=== PATIENT | male | born 1980 | race Caucasian/White ===

== ENCOUNTER 2020-11-11 14:05 | Outpatient (REF) | payer OTHER, SELFPAY | END 2020-11-11 14:06 | disposition home or self-care (01) | LOC: HO.LAB 14:05 | PROVIDERS: Visit Provider Internal Medicine | DX: Z20.822 Contact with and (suspected) exposure to COVID-19 (principal) | CPT/HCPCS: 36415; C9803; U0003; U0005 ==

== ENCOUNTER 2021-01-04 16:18 | Emergency (ER) | payer OTHER, SELFPAY ==
[2021-01-04 16:24] VITALS: BP 139/91; PULSE 81; RESP 16; TEMP 36.5; O2SAT 98; BMI 31.7
--- NOTE | 2021-01-04 17:47 | ED.WOUNDLAC ---
HPI - Wound/Laceration General Chief Complaint: Wound/Laceration Stated Complaint: Finger lac Time Seen by Provider: 01/04/21 17:43 Source: patient Mode of arrival: ambulatory Limitations: no limitations History of Present Illness HPI narrative: 40-year-old male here with laceration to the left thumb after cutting it with a razor blade. The patient tells me he was cutting vinyl sivan when his hand slipped causing him to hit his left finger. Tetanus status out of date Related Data Previous Rx's Medication Instructions Recorded oxycodone 5 mg PO Q6H PRN #10 tab 01/04/21 Allergies Allergy/AdvReac Type Severity Reaction Status Date / Time No Known Allergies Allergy Verified 01/04/21 17:43 Review of Systems Review of Systems: Yes all other systems are reviewed and are negative Constitutional: Constitutional: Reports no additional constitutional complaints, Denies body ache(s), Denies chills, Denies fever(s), Denies headache(s) and Denies weakness Eyes: Eyes: Reports no additional eye complaints and Denies change in vision ENT: Reports system reviewed and no additional complaints, except as documented, Denies dizziness, Denies headache(s), Denies nasal congestion, Denies nasal discharge and Denies neck pain Cardiovascular: Cardiovascular: Reports no additional cardiovascular complaints, Denies chest pain, Denies leg edema and Denies dyspnea Respiratory: Respiratory: Reports no additional respiratory complaints, Denies cough and Denies dyspnea Gastrointestinal: Gastrointestinal: Reports no additional gastrointestinal complaints, Denies abdominal pain, Denies diarrhea, Denies nausea and Denies vomiting Genitourinary: Genitourinary: Denies urinary incontinence Musculoskeletal: Musculoskeletal: Reports no additional musculoskeletal complaints, Denies back pain, Denies arthralgias, Denies joint swelling, Denies neck pain, Denies numbness and Denies tingling Integumentary/Breasts: Skin/Breast: Reports system reviewed and no additional complaints, except as docu and Denies rash Comments: +laceration Neurologic: Reports system reviewed and no additional complaints, except as documented, Denies Abnormal speech present, Denies dizziness, Denies headache(s), Denies numbness, Denies tingling and Denies weakness PMF Past Medical History Attestation statement: The following information was validated with the patient. Source: old records reviewed and nursing notes reviewed Medical History No known health problems Social History Social History Advance Directives: No Advance Directives Information Provided: Yes Physical Exam Vital Signs: Vital Signs: Last Vital Signs Temp 97.7 F 01/04/21 16:24 Pulse 81 01/04/21 16:24 Resp 16 01/04/21 16:24 BP 139/91 H 01/04/21 16:24 Pulse Ox 98 01/04/21 16:24 Body Mass Index 31.7 Const: General: cooperative, healthy appearing, comfortable and no acute distress Orientation/consciousness: patient oriented x3 Limitations: no limitations HENMT: Head: Yes normal to inspection Ears: hearing grossly normal bilaterally General nose exam: Normal external nose present Face and sinus: Yes normal facial exam Mouth: Normal oral and palatal mucosa present Throat: Yes posterior oropharynx normal Eyes: General: appearance normal, both eyes and all related structures Pupils: Equal, round and reactive pupils present Neck: Neck: Yes normal visual inspection Chest: Chest palpation & inspection: normal inspection of the chest Resp: Effort & Inspection: normal respiratory effort Auscultation: clear to auscultation bilaterally Cardio: Rate: regular rate Rhythm: regular rhythm Peripheral pulses: Peripheral pulses 2+ throughout GI: Inspection: Yes normal to inspection Palpation (GI): Soft to palpation and nontender Auscultation: normal bowel sounds Back/Spine/Pelvis: Thoracic/Lumbar Spine: thoracic and lumbar spine normal to inspection Skin: General skin exam: no rashes or lesions noted Neuro: General: patient oriented x3, no focal motor deficits and normal sensation to monofilament Cranial nerves: Yes Equal, round and reactive pupils present Cognition (Neuro): normal cognition Speech: No Abnormal speech present Gait exam (Neuro): Normal gait present Motor exam (neuro): 5/5 motor strength present throughout Extrem: General: Yes normal to inspection Hand/finger images: 1. Laceration extending into the nail bed with active bleeding. Approximately 2 centimetre. Course Course Course Narrative: Laceration extending through the nail bed to the left thumb. Full range of motion. Will update tetanus, perform digital block and wound repair. 2009-digital block done. The laceration was closed. Patient aware the lateral aspect of the nail may fall off on its own. Reviewed follow-up for suture removal. Reviewed wound care at home and worrisome signs and symptoms and when to return to the emergency department. Procedures Laceration Laceration 1: Site: hand Side (If applicable): left Size (cm): 2 Description: linear and other (through the nail bed) Depth: simple, single layer Amount of anesthesia used (mL): 5 Pre-repair: wound explored and irrigated extensively Skin layer closed with: vicryl Size (cm): 5-0 Number of sutures: 4 Technique: simple, interrupted Nerve Block Nerve Block 1: Local Anesthetic: lidocaine 2% Amount of anesthesia used (mL): 5 Side: left Nerve Blocks: other (thumb) Procedure Successful: Yes Patient Tolerated Procedure: well Complications: none Discharge Plan Discharge Clinical Impression: Laceration Patient Disposition: Home, Self-Care Instructions: Finger Laceration (ED) Additional Instructions: Wash with soap and water every day Sutures out in 10-14 days Prescriptions: New oxycodone 5 mg tablet 5 mg PO Q6H PRN (Reason: pain) Qty: 10 RF: 0 Referrals: Frank Christy MD, DO [Primary Care Provider] - 2 days Interventions: ED Discharge Assessment Last Done: 01/04/21 19:53 Discharge Date/Time: 01/04/21 19:09
[2021-01-04] MEDS: Diphth,Pertus(ACell),Tet Adult 0.5 ML SYRINGE IM (17:57)
[2021-01-04] MEDS: Lidocaine HCl 2 % MPF 5 ML VIAL SUBCUT (18:00)
== END 2021-01-04 19:09 | disposition home or self-care (01) ==
PROVIDERS: Emergency Provider Emergency Medicine; PCP Internal Medicine
DX: S61.012A Laceration without foreign body of left thumb without damage to nail, initial encounter (principal); W27.8XXA Contact with other nonpowered hand tool, initial encounter; Y93.E9 Activity, other interior property and clothing maintenance; Y92.019 Unspecified place in single-family (private) house as the place of occurrence of the external cause; Y99.9 Unspecified external cause status
CPT/HCPCS: 12002; 90471; 90715; 99284

== ENCOUNTER 2021-05-30 10:47 | Outpatient (REF) | payer OTHER, SELFPAY ==
[2021-05-30 10:57] LABS: MANUAL DIFF FLAG NO
[2021-05-30 11:17] LABS: Basophils Percent Auto 0.4 % (0-2); Eosinophils Absolute Auto 0.1 X10*3/uL (0.0-0.4); Hematocrit 46.3 % (42-52); Hemoglobin 16.1 g/dl (14.0-18.0); Imm Gran Abs Auto 0.02 X10*3/uL (0.00-0.03); Imm Gran Pct Auto 0.4 % (0.0-0.4); Lymphocytes Absolute Auto 1.9 X10*3/uL (1.2-4.9); Lymphocytes Percent Auto 36.8 % (20-40); Mean Corpuscular HGB Conc 34.8 g/dl (31.0-36.0); Mean Corpuscular Hemoglobin 31.6 pg (27.0-33.0); Mean Platelet Volume 10.2 fL (9.4-12.4); Monocytes Absolute Auto 0.3 X10*3/uL (0.1-1.2); Monocytes Percent Auto 6.4 % (2-11); Neutrophils Absolute Auto 2.8 X10*3/uL (2.0-8.3); Platelet Count 247 X10*3/uL (160-400); Red Blood Count 5.09 X10*6/uL (4.60-5.80); Red Cell Distribution Width 11.6 % (11.0-16.0)
[2021-05-30 11:49] LABS: Alanine Aminotransferase 17 U/L (0-40); Albumin Level 3.8 g/dL (3.5-5.0); Alkaline Phosphatase 56 U/L (39-117); Anion Gap 11 (12-20); Aspartate Amino Transferase 14 U/L (5-37); Bilirubin Total 0.9 mg/dL (0.0-1.0); Blood Urea Nitrogen 13 mg/dL (9-16); Calcium 9.1 mg/dL (8.4-10.2); Carbon Dioxide 23 mmol/L (22-29); Chloride 108 mmol/L (96-108); Cholesterol 245 mg/dL; Estimated Glomerular Filt Rate > 60; Glucose Fasting 98 mg/dL (60-99); HDL Cholesterol 47 mg/dL; LDL Cholesterol Calculated 173 mg/dl; Potassium 4.3 mmol/L (3.3-5.1); Sodium 138 mmol/L (135-145); Total Protein 6.7 g/dL (6.5-8.0); Triglycerides 127 mg/dL
[2021-05-30 12:11] LABS: Thyroid Stimulating Hormone 0.96 uIU/mL (0.32-4.0); Vitamin D 25-OH Total 24.6 ng/mL (>30)
== END 2021-05-30 10:48 | disposition home or self-care (01) ==
LOC: HO.LAB 10:47
PROVIDERS: PCP Internal Medicine; Visit Provider Internal Medicine
DX: K58.0 Irritable bowel syndrome with diarrhea (principal); N63.0 Unspecified lump in unspecified breast; R21 Rash and other nonspecific skin eruption
CPT/HCPCS: 36415; 80053; 80061; 82306; 84443; 85025

== ENCOUNTER → 2021-06-13 09:49 | Outpatient (BNVA) | payer OTHER, SELFPAY | PROVIDERS: PCP Internal Medicine; Visit Provider Surgery ==

== ENCOUNTER 2021-06-20 14:20 | Outpatient (REF) | payer OTHER, SELFPAY ==
--- NOTE | ~2021-06-20 | MM_ITS ---
EXAMINATION: MM DIAGNOSTIC DIGITAL BREAST TOMOSYNTHESIS, BILATERAL US DIAGNOSTIC ULTRASOUND BREAST, LEFT CLINICAL INFORMATION: 40-year-old male with left breast tenderness lateral areolar and mild palpable fullness. No prior breast imaging. Family history breast cancer, maternal aunt. COMPARISON: None (current study represents initial baseline exam). TECHNIQUE: Digital breast tomosynthesis is performed in both the craniocaudal and mediolateral oblique views along with computer-aided detection (CAD). Synthesized 2D images are generated from the tomosynthesis. Ultrasound left breast is targeted to the subareolar and periareolar region. Patient is able to point to area of concern at time of imaging. Grayscale imaging and color Doppler are performed without and with harmonics. FINDINGS: There are scattered areas of fibroglandular density (ACR BI-RADS breast composition Category b). There is mild bilateral subareolar gynecomastia. There is no mass or architectural abnormality. No abnormal calcifications. The axilla and skin contours are unremarkable. There is no skin thickening or coarsening of the stromal markings. Ultrasound demonstrates no cystic or solid mass or architectural abnormality. Mild subareolar gynecomastia is demonstrated consistent with the mammography. There is no skin thickening or edema tracking in soft tissue planes. No hyperemia. Results are discussed with the patient at time of visit. MM/MM tomosynthesis diagnostic BI IMPRESSION: Mild bilateral subareolar gynecomastia. ASSESSMENT: BI-RADS 2: Benign RECOMMENDATION: Patient may be managed and followed as needed based on the clinical impression.
== END 2021-06-20 14:21 | disposition home or self-care (01) ==
LOC: HO.MAMMO 14:20
PROVIDERS: PCP Internal Medicine; Visit Provider Surgery
DX: N63.25 Unspecified lump in the left breast, overlapping quadrants (principal)
CPT/HCPCS: 76642; 77062; 77066

== ENCOUNTER → 2021-06-30 14:37 | Outpatient (BNVA) | payer OTHER, SELFPAY | PROVIDERS: PCP Internal Medicine; Visit Provider Surgery ==

== ENCOUNTER 2021-07-16 08:30 | Day surgery (SDC) | payer OTHER, SELFPAY ==
[2021-07-09 16:10] VITALS: BMI 28.3
--- NOTE | 2021-07-15 09:28 | P.CONAN_ITS ---
Documented by User: Krystle Omer NP 07/15/21 09:28 HPI - Anesthesia Eval Consult details Narrative: 40yo M for Left Excision Breast Mass PMFSH Active Problems Active Problems: All Active Problems (Updated 06/13/21 @ 10:22 by Jerry Lee MD) Left breast mass (Acute) Past Medical History Medical History No known health problems Family History Family History Maternal Grandfather Bone cancer Metastatic cancer to brain Paternal Grandmother Leukemia Maternal Aunt Breast cancer, Onset Age: 60 Maternal Uncle Skin cancer Surgical History Surgical History History of hydrocelectomy Social History Social History Alcohol intake: current Alcohol intake frequency: holidays/special occasions only Patient Tobacco Use Status: Never used Tobacco Second Hand Smoke Exposure: No Use of substances other than those prescribed or required for medical reasons: No Are you DNR?: No Advance Directives: No Advance Directives Information Provided: Yes Advance Directives on File: No Meds Allergies Allergy/AdvReac Type Severity Reaction Status Date / Time No Known Allergies Allergy Verified 06/13/21 10:03 Home Medications Medication Instructions Recorded Confirmed Last Taken Type dicyclomine 20 mg tablet 20 mg PO TID 06/13/21 06/30/21 Unknown History Exam Exam Date and Time: July 15, [id number] Height,Weight and Vital Signs: Height 6 ft 3 in Weight 102.965 kg Pertinent Lab Results Pertinent Lab Results: Laboratory Tests 05/30/21 05/30/21 10:55 10:55 WBC 5.0 Hgb 16.1 Hct 46.3 Plt Count 247 Sodium 138 Potassium 4.3 Chloride 108 Carbon Dioxide 23 BUN 13 Creatinine 1.12 Assessment and Plan Assessment Anesthesia Assessment: Chart Reviewed Documented by User: Leanne Best MD 07/16/21 10:03 [facility] Past Medical History Medical History No known health problems Family History Family History Maternal Grandfather Bone cancer Metastatic cancer to brain Paternal Grandmother Leukemia Maternal Aunt Breast cancer, Onset Age: 60 Maternal Uncle Skin cancer Family history of problems with anesthesia: No Surgical History Surgical History History of hydrocelectomy History of Problems with Anesthesia: No Social History Social History Alcohol intake: current Alcohol intake frequency: holidays/special occasions only Patient Tobacco Use Status: Never used Tobacco Second Hand Smoke Exposure: No Use of substances other than those prescribed or required for medical reasons: No Are you DNR?: No Advance Directives: No Advance Directives Information Provided: Yes Advance Directives on File: No Meds Allergies Allergy/AdvReac Type Severity Reaction Status Date / Time No Known Allergies Allergy Verified 06/13/21 10:03 Home Medications Medication Instructions Recorded Confirmed Last Taken Type dicyclomine 20 mg tablet 20 mg PO TID 06/13/21 06/30/21 Unknown History Exam Height,Weight and Vital Signs: Height 6 ft 3 in Weight 102.965 kg Vital Signs Temp Pulse Resp BP Pulse Ox 07/16/21 08:48 97.4 F 79 16 127/87 98 Airway Mallampati Class: II (Overbite) TM Dist: >3cm Neck ROM: Full Loose/Missing/Broken Teeth: Yes (Broken molar top left) Heart: RRR Lungs: CTAB Assessment and Plan Assessment Anesthesia Assessment: Anesthesia Plan Discussed Final Anesthetic Review Family History of Problems with Anesthesia: No History of Problems with Anesthesia: No NPO: Yes ASA Class: I Final Preanesthetic Review: No Changes in Pt Med Stat, Meds/Allgs Chart Reviewed, Consent Obtained/Reviewed and Anes Risks/Benef Reviewed Patient Risk: Low Procedure Risk: Low Assessment/Block/Sedation in SS: Assess/Block/Sedation-SS Anesthetic Plan Anesthetic Plan: GA and MAC: Disposition: Standard PACU
[2021-07-16] VITALS (8 sets, daily range): BP systolic 86–127; BP diastolic 50–87; PULSE 58–88; RESP 16–17; TEMP 36.2–36.3; O2SAT 96–99
[2021-07-16] MEDS: Lactated Ringers 1,000 ML 100 ML IVCONT (09:02)
--- NOTE | 2021-07-16 09:59 | MHC.SHP ---
Pre-Procedural Eval Section A Date of Service: 07/16/21 The patient is an INPATIENT: No Changes since office visit: Yes Patient answered all questions; No Cold of Flu in the past 2 weeks, No New Medical Problems and No Changes in Medication The History & Physical has been completed within 30 days and I have reviewed it.: Yes Section B Chief Complaint: lump in left breast Allergies: Allergies Allergy/AdvReac Type Severity Reaction Status Date / Time No Known Allergies Allergy Verified 06/13/21 10:03 Plan Diagnosis/Plan: Unchanged I have reviewed the history and physical and performed a pertinent physical examination on my patient. No changes have occurred unless specified.
--- NOTE | 2021-07-16 10:51 | P.OP_ITS ---
Operative Note Operative Note Date of Service: 07/16/21 Narrative: Preoperative diagnosis: Left breast mass Postoperative diagnosis: Same Procedure: Excision of left breast mass Surgeon: Jerry Lee MD Conference And Event Organiser: Kamini Gates PA-C Anesthesia: Mac Indications for procedure: 40-year-old male patient presenting with a painful mass in the left breast in the upper outer quadrant. Patient feels the lump is increasing in size and becoming more painful. Evaluation mammogram and ultrasound revealed no suspicious findings. Findings were suggestive of gynecomastia. Operative findings: 3 cm area of breast thickening below the nipple extending into the upper outer quadrant consistent with gynecomastia. Specimen: Left breast mass Estimated blood loss: 5 mL Complications: None Procedure details: Patient was brought to the OR and placed in a supine positio n. After administering sedation, the left breast was prepped with ChloraPrep and draped in a sterile fashion. A surgical time-out was called the consent confirmed. Patient received preoperative antibiotics and Venodyne boots were in place. Local anesthesia consisting of 0.5% Sensorcaine mixed with 1% lidocaine with epinephrine were infiltrated around the left nipple. A curvilinear incision below the nipple was then created. This carried down through subcutaneous tissue. Superior and inferior skin flaps were then created with electrocautery. Dissection was continued below the nipple and the ductal tissue below the nipple excised using electrocautery. The dissection was continued superiorly and laterally with electrocautery and then extended down towards the chest wall. A medial to lateral dissection was then created off the chest wall. Lesion was completely excised and sent to pathology further examination. Upon palpation of the wound and additional thickened breast tissue was identified in the medial left breast. This was grasped with an Allis clamp and excised again using electrocautery. This was also sent to pathology. Wounds were checked for hemostasis, irrigated with saline solution and suctioned dry. Deep breast tissue was then reapproximated using interrupted 3-0 Polysorb sutures. Dermis was reapproximated using interrupted 3-0 Polysorb sutures. Skin was closed using a running subcuticular 4-0 Polysorb suture. Sterile dressings were then applied. The patient tolerated the procedure well. Sponge, instrument, and needle counts reported as correct. He was transferred to PACU in stable condition.
[2021-07-16] MEDS: oxyCODONE HCl Immed Release 5 MG TABLET PO (11:15)
[2021-07-16] MEDS: Acetaminophen 325 MG TABLET 650 MG PO (11:15)
[2021-07-16] MEDS: fentaNYL citrate/PF 100 MCG/2 ML VIAL 25 MCG IVPUSH ×2 (11:19→11:34)
== END 2021-07-16 13:00 | disposition home or self-care (01) ==
PROVIDERS: PCP Internal Medicine; Visit Provider Surgery
PROC: (CPT 19120; principal; 2021-07-16 10:00)
DX: N63.21 Unspecified lump in the left breast, upper outer quadrant (principal); N64.4 Mastodynia; Z79.899 Other long term (current) drug therapy
CPT/HCPCS: 19120; 88305; J0690; J2250; J3010

== ENCOUNTER → 2021-07-22 10:14 | Outpatient (BNVA) | payer OTHER, SELFPAY | PROVIDERS: PCP Internal Medicine; Visit Provider Surgery ==

== ENCOUNTER 2024-06-01 11:09 | Outpatient (REF) | payer BC, SELFPAY ==
[2024-06-01 12:32] LABS: Cholesterol 265 mg/dL (<200); HDL Cholesterol 59 mg/dL (>40); LDL Cholesterol Calculated 176 mg/dL (<100); Triglycerides 154 mg/dL (<150)
[2024-06-03 23:25] LABS: TS Negative Control Passed; TS Panel A 0; TS Panel B 0; TS Positive Control Passed; TSpotTB Negative (Negative)
== END 2024-06-01 11:10 | disposition home or self-care (01) ==
LOC: HO.LAB 11:09
PROVIDERS: Visit Provider Dermatology
DX: Z79.899 Other long term (current) drug therapy (principal)
CPT/HCPCS: 36415; 80061; 86481

== ENCOUNTER 2024-10-05 09:58 | Outpatient (REF) | payer OTHER, SELFPAY ==
--- OUTSIDE RECORDS SUMMARY | 2024-10-05 10:04 | XMS_ITS | Continuity of Care Document ---
Author Organization [facility] Address [address] [place] [address] Phone Care Team Providers Care Nurse Informatics Educator Name Role Phone Unavailable Unavailable Unavailable Advance Directives Directive Yes / No Effective Date File Name No Information Encounters Encounter Description Practice Location Reason(s) For Visit Diagnoses Date Provider Providers Copied on Encounter [facility], [address], [place], [place], [id number], tel:[phone] [place] [facility] No Information 201 8 No Information Family History Family Member Type Diagnosis Age At Onset No Information Payers Payer name Insurance type Covered constitution party ID Authoriza tion(s) No Information Social History Type Description Quantity Date Captured Comments Sex Male Smoking Status No Information Chief Complaint And Reason For Visit No Information Reason For Referral Reason For Referral No Information History Of Present Illness Encounter Date Complaint History Of Prese nt Illness No Information Functional Status Date Functional Assessmen t No Information Instructions Date Instruction Additional Infor mation No Information Assessments Type Assessment Date No Information Patient Care Teams Name Effective Dates (start - stop) Status Members No Information
--- OUTSIDE RECORDS SUMMARY | 2024-10-05 10:04 | XMS_ITS | Continuity of Care Document ---
Author Organization [facility] Address [address] [facility] [place] [address] Phone Care Team Providers Care Manager Customer Name Role Phone Brittney Christie Unavailable Unavailable Allergies, Adverse Reactions, Alerts Substance Reaction Status Criticality No Known Allergies Active No Inform ation Medications Medication Instructions Dosage Effective Dates (start - stop) Status Comments propranolol 20 mg tablet take 1 tablet by oral route 2 times every day 20 MG - Active Xanax 0.5 mg tablet take 1 tablet by oral route every day as needed for anxiety 0.5 MG - No Longer Active Procedures Procedure Date Offic/outpt E&m [facility] Mod-hi 2 21 Offic/outpt E&m New Mod Sever 0 Advance Directives Directive Yes / No Effective Date File Name No Information Encounters Encounter Description Practice Location Reason(s) For Visit Diagnoses Date Provider Providers Copied on Encounter Offic/outpt E&m [facility] Mod-hi 2 [facility] Supervisor [employer], [address] [facility] [facility], [place], [id number] , tel:[phone] JYOTI Freeman palpitations (chief complaint) PalpitationsPanic attack 1 Shannon Lugo. [address] [facility] [place] [id number], [place], [id number] , . tel:[phone] Referring Provider: Kristy Brunner, [address] [facility] [address] [place] [address], [place], [address] . tel:[phone] [facility], [address], [id number] , tel:[phone] JYOTI Freeman No Information 1 Ari Wagner. [address], [place], [place], [id number] , [place]. tel:[phone] Offic/outpt E&m [facility] Supervisor [employer], [address], [place], [place], [id number] , tel:[phone] JYOTI Freeman Anxiety (chief complaint) Generalized Anxiety Disorder 0 Ari Wagner. [address], [place], [place], [id number] , [place]. tel:[phone] Referring Provider: Kristy Brunner [address] [facility], [place], [address] . tel:[phone] Family History Family Member Type Diagnosis Age At Onset Father Problem Crohn's disease Father Problem alcoholism Father Problem alzheimer's disease Mother Problem Lymphoma Payers Payer name Insurance type Covered alliance party ID Minesh jean(s) [employer] [facility] [id number] Social History Type Description Quantity Date Captured Comments Alcohol Use Details Caffeine Use Details soda 6 cups per day Tobacco Use Status Occasional cigarette smoker Smoking Status Current some day smoker Smoking Tobacco Use Details Cigarette: No Details Available Cigarette: No Details Available Sex Male Vital Signs Date / Time: Height Weight BMI Pulse Rate Blood Pressure Temperature Respiratory Rate Body Surface Area Head Circumference Head Circ. Percentile Wt./[place]. Percentile BMI percentile Pulse Ox Inhaled Ox 2:27 PM 72.00 in 68.674 kg (151.40 lbs) 20.5 3 kg/m eter (2) 71 /min 128/80 mm[Hg] 98.20 F 98 % Chief Complaint And Reason For Visit From encounter dated '11/05/2020 14:45'. palpitations (chief complaint). Description: The patient presents with a complaint of palpitations.The problem occurs constantly at rest. The patient rates the severity of the palpitations as moderate and the symptoms have improved. The patient denies chest pain. Relevant history for this patient i ncludes tobacco use and drug use but excludes excessive alcohol, diabetes or obesity. The patient denies any aggravating factors. Interventions the patient has tried have not provided any relief. Thepatient denies any associated symptoms. Additional information: He reports constant chest squeezing. He had a moment where he states the lights went out. He went to the ER twice with the condition and had full, normal workups. He wants to see a metal hanging helper. Admits to having panicattacks. Has been smoking an egregious amount of marijuana. Reason For Referral Reason For Referral No Information Plan Of Treatment Date Type Action Status Referral Ordered: Referrals: Cardiology. Evaluate and treat ordered Referral Ordered: Referrals: Psychiatry. Evaluate and treat ordered Referral Ordered: Referrals: Psychiatry. Assume care ordered History Of Present Illness Encounter Date Complaint History Of Prese nt Illness palpitations (comments) He takes propranolol that was prescribed by a former PCP for heart irregularity but he could not elaborate any more what that meant. He is fairly new to this practice. He states he has an aiden that shows bradycardia or tachycardia. He was worried when the aiden showed 35. He has no pain or shortness of breath. Does not see psychiatry for his anxiety and panic. palpitations The patient pres ents with a complaint of palpitations. The problem occurs constantly at rest. The patient rates the severity of the palpitations as moderate and the symptoms have improved. The patient denies chest pain. Relevant history for this patient includes tobacco use and drug use but excludes excessive alcohol, diabetes or obesity. The patient denies any aggravating factors. Interventions the patient has tried have not provided any relief. The patient denies any associated symptoms. Additional information: He reports constant chest squeezing. He had a moment where he states the "lights went out. He went to the ER twice with the condition and had full, normal workups. He wants to see a metal hanging helper. Admits to having panic attacks. Has been smoking an egregious amount of marijuana. Anxiety There is continu ation of initial symptoms. The patient presents with anxious/fearful thoughts and difficulty staying asleep. The patient's risk factors include alcoholism, financial worries, history of depression, social isolation and unemployment. Additional information: Issues here to establish care issues with his previous PCP he states he uses propranolol Xanax to control his anxiety issues, when questioned 6 was told he was allergic to Lexapro and hydroxyzine caused anger issues, denies having seen psychiatry in the past, h/o ETOH abuse in the past. Functional Status Date Functional Assessmen t No Information Instructions Date Instruction Additional Infor anabela No Information Assessments Type Assessment Date assessment Palpitations assessment Panic attack impression New diagnosisI revtayla wed all his hospital notes, labs, EKG results, and CXR results. He has had two normal evaluations in the ER. He has no symptoms at this time. Will refer him to cardiology. impression UncontrolledReferral to psychiat ry per patient request. Mental Status Date Cognitive Assessment Orientation - Soldier ed to time, place, person, situation. Patient Care Teams Name Effective Dates (start - stop) Status Members No Information
[2024-10-05 10:13] LABS: MANUAL DIFF FLAG NO
[2024-10-05 10:34] LABS: Basophils Percent Auto 0.5 % (0-2); Eosinophils Absolute Auto 0.1 X10*3/uL (0.0-0.4); Eosinophils Percent Auto 0.9 % (0-4); Hematocrit 47.7 % (42.0-52.0); Hemoglobin 16.3 g/dl (14.0-18.0); Imm Gran Abs Auto 0.01 X10*3/uL (0.00-0.03); Imm Gran Pct Auto 0.2 % (0.0-0.4); Lymphocytes Absolute Auto 1.8 X10*3/uL (1.2-4.9); Lymphocytes Percent Auto 32.8 % (20-40); Mean Corpuscular HGB Conc 34.2 g/dl (31.0-36.0); Mean Corpuscular Hemoglobin 31.3 pg (27.0-33.0); Mean Corpuscular Volume 91.6 fL (80.0-98.0); Monocytes Absolute Auto 0.4 X10*3/uL (0.1-1.2); Monocytes Percent Auto 7.7 % (2-11); Neutrophils Absolute Auto 3.2 x10*3/uL (2.0-8.3); Neutrophils Percent Auto 57.9 % (45-73); Platelet Count 243 X10*3/uL (160-400); Red Blood Count 5.21 X10*6/uL (4.60-5.80); Red Cell Distribution Width 12.2 % (11.0-16.0); White Blood Count 5.6 X10*3/uL (4.8-10.8)
[2024-10-05 11:01] LABS: Alanine Aminotransferase 18 U/L (0-40); Albumin Level 3.8 g/dL (3.5-5.0); Alkaline Phosphatase 59 U/L (39-117); Anion Gap 8 (12-20); Aspartate Amino Transferase 21 U/L (5-37); Blood Urea Nitrogen 11 mg/dL (9-16); Calcium 8.7 mg/dL (8.4-10.2); Carbon Dioxide 24 mmol/L (22-29); Chloride 108 mmol/L (96-108); Estimated Glomerular Filt Rate > 60; Glucose Random 91 mg/dL (60-115); Sodium 136 mmol/L (135-145); Total Protein 7.3 g/dL (6.5-8.0)
== END 2024-10-05 09:59 | disposition home or self-care (01) ==
LOC: HO.LAB 09:58
PROVIDERS: Visit Provider Dermatology
DX: L40.0 Psoriasis vulgaris (principal); Z79.899 Other long term (current) drug therapy
CPT/HCPCS: 36415; 80053; 85025

== ENCOUNTER 2024-10-18 10:37 | Outpatient (REF) | payer OTHER, SELFPAY ==
[2024-10-18 13:51] LABS: Estimated Average Glucose 100 mg/dL; Hemoglobin A1C 136.6167 umol/L; Hemoglobin A1c % 5.1 % (<6.0); Total Hemoglobin (HGBA1C) 4245.9578 umol/L
[2024-10-18 14:40] LABS: PSA,Total (Free>4and<10) 0.68 ng/mL (0.00-4.00)
[2024-10-18 14:41] LABS: C Reactive Protein 0.28 mg/dL (< or = 0.50); Cholesterol 255 mg/dL (<200); HDL Cholesterol 51 mg/dL (>40); LDL Cholesterol Calculated 175 mg/dL (<100); Magnesium 1.9 mg/dL (1.6-2.6); Triglycerides 145 mg/dL (<150)
[2024-10-18 14:50] LABS: TSH reflex Free T4 1.31 uIU/mL (0.32-4.0)
[2024-10-18 14:54] LABS: Vitamin D 25-OH Total 18.7 ng/mL (>30)
[2024-10-18 15:01] LABS: Folate 5.1 ng/mL (> or = 4.0); Vitamin B12 349 pg/mL (200-900)
[2024-10-19 11:53] LABS: RPR Rapid Plasma Reagin NON-REACTIVE (NON-REACTIVE)
[2024-10-22 14:13] LABS: Vitamin B1 9 nmol/L (8-30)
[2024-10-24 01:59] LABS: Testosterone, Total 564 ng/dL (250-1100)
== END 2024-10-18 10:38 | disposition home or self-care (01) ==
LOC: HO.HMGCLDS 10:37
PROVIDERS: PCP Internal Medicine; Visit Provider Physician Assistant Medical
DX: Z00.00 Encounter for general adult medical examination without abnormal findings (principal); R21 Rash and other nonspecific skin eruption; K58.9 Irritable bowel syndrome, unspecified; E78.00 Pure hypercholesterolemia, unspecified; I10 Essential (primary) hypertension; F41.9 Anxiety disorder, unspecified; F32.A Depression, unspecified; T78.40XA Allergy, unspecified, initial encounter; R68.82 Decreased libido; E66.811 Obesity, class 1; Z68.30 Body mass index [BMI] 30.0-30.9, adult; Z12.5 Encounter for screening for malignant neoplasm of prostate; Z13.1 Encounter for screening for diabetes mellitus
CPT/HCPCS: 36415; 80061; 82306; 82607; 82746; 83036; 83735; 84153; 84403; 84425; 84443; 86140; 86592

== ENCOUNTER 2024-10-18 10:37 | Outpatient (AMB) | payer OTHER, SELFPAY ==
--- NOTE | 2024-10-18 10:41 | A.OFFPC_ITS ---
Vital Signs 10/18/24 10:52 Height 6 ft 2 in Weight 234 lb BMI 30.0 BP 120/68 Blood Pressure Location Rt brachial Pulse 77 Pulse Source Pulse Oximeter Temp 97.2 F Pulse Oximetry (%) 95 Intake Visit Reasons: physical Intake Note: has psoriasis, would like to check testosterone level also having trouble sleeping because of work schedule. Allergies No Known Allergies Allergy (Verified 10/18/24 11:35) Medication List - Last Reconciled 10/18/24 by Dena Tubbs PA-C No Known Home Meds FOR[facility], [facility] Medical History (Updated 10/18/24 @ 11:45 by Dena Tubbs PA-C) History of gynecomastia History of mammogram (~06/20/21) Insomnia Obesity (BMI 30.0-34.9) Low libido Rash of penis Colon cancer screening Allergies Depression Anxiety Hypertension Mild hypercholesterolemia Irritable bowel syndrome Surgical History History of hydrocelectomy Family History Maternal Grandfather Bone cancer Metastatic cancer to brain Paternal Grandmother Leukemia Maternal Aunt Breast cancer, Onset Age: 60 Maternal Uncle Skin cancer Social History Alcohol intake: current Alcohol intake frequency: holidays/special occasions only Patient Tobacco Use Status: Never used Tobacco Second Hand Smoke Exposure: No Physical exam (Primary Care) Care Plan Goal for BP management: 130/80 at goal today BMI Assessment/Plan discussion: High BMI High, discussed plan: lifestyle, weight reduction, dietary, physical activity and alcohol moderation Tobacco/Smoking Status: Tobacco use Status Patient Tobacco Use Status Never used Tobacco 10/18/24 10:42 Coding Level of Care Code New Pt Prev Care 40-64y(89332) Diagnoses Irritable bowel syndrome K58.9 Mild hypercholesterolemia E78.00 Hypertension I10 Anxiety F41.9 Depression F32.A Allergies T78.40XA Rash of penis R21 Low libido R68.82 Insomnia G47.00 Obesity (BMI 30.0-34.9) E66.811 Annual physical exam Z00.00 Assessment & Plan Assessment & Plan (1) Irritable bowel syndrome: Code(s): K58.9 - Irritable bowel syndrome, unspecified Category: Medical Plan: This condition is chronic and stable without any medications. Will continue to monitor. (2) Mild hypercholesterolemia: Code(s): E78.00 - Pure hypercholesterolemia, unspecified Category: Medical Plan: This condition is chronic and stable without any medications. Will continue to monitor. (3) Hypertension: Code(s): I10 - Essential (primary) hypertension Category: Medical Plan: This condition is chronic and stable without any medications. Will continue to monitor. (4) Anxiety: Code(s): F41.9 - Anxiety disorder, unspecified Category: Medical Plan: This condition is chronic and stable without any medications. Will continue to monitor. (5) Depression: Code(s): F32.A - Depression, unspecified Category: Medical Plan: This condition is chronic and stable without any medications. Will continue to monitor. 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 Awaiting injection that was sent by dermatology. Condition is chronic and stable continue to monitor. (7) Rash of penis: Code(s): R21 - Rash and other nonspecific skin eruption Category: Medical Plan: Patient has been dealing with psoriasis rash to multiple areas of the body including the shaft and the head of the penis. Being followed by [facility]. Currently on topical creams and ointments with no improvement in symptoms. Awaiting injection through insurance. Patient has follow-up in 4 months with dermatology. He has been with similar treatment for the past 2 years with no improvement therefore will refer to Urology for further evaluation and management. Will start patient on Keflex and prednisone taper. Will continue to monitor. (8) Low libido: Code(s): R68.82 - Decreased libido Category: Medical Plan: Patient with a history of decreased libido. Has tried [id number] medication including Viagra with no improvement in symptoms. Patient requesting testosterone levels to be drawn. Will refer to Urology. Will continue to monitor. (9) Insomnia: Code(s): G47.00 - Insomnia, unspecified Category: Medical Plan: Patient will be started on trazodone 50 mg at bedtime. Condition is chronic and stable continue to monitor. (10) Obesity (BMI 30.0-34.9): Code(s): E66.811 - Obesity, class 1 Category: Medical Plan: Patient to continue improving his diet and exercise. Condition is chronic and stable continue to monitor. (11) Annual physical exam: Code(s): Z00.00 - Encounter for general adult medical examination without abnormal findings Category: Medical Plan: See plan below. Plan Plan - Referral to Gastroenterology for colonoscopy due to a history of Crohn's disease. - Referral to Urology for potential low libido and skin issues, given the charge machine operator's ongoing management. - Prescribe an oral antibiotic and a prednisone taper for the psoriatic lesion flare-up. - Bloodwork to include CRP, hemoglobin A1c, lipid panel, PSA, TSH, vitamin , vitamin D, and testosterone levels. - Encourage continuation of exercise and weight management. - for insomnia patient will be started on trazodone 50 mg for bedtime. - Monitor hyperlipidemia, with consideration of alternative non-statin therapies like coenzyme and fish oil. Orders: Orders C Reactive Protein Today Z00.00 - Encounter for general adult medical examination without abnormal findings PSA,Total (Free>4and<10) Today Z00.00 - Encounter for general adult medical examination without abnormal findings Vitamin B1 Today Z00.00 - Encounter for general adult medical examination without abnormal findings Testosterone, Total Today Z00.00 - Encounter for general adult medical examination without abnormal findings RPR Monitor reflex titer Today R21 - Rash and other nonspecific skin eruption Hemoglobin A1c Today Z00.00 - Encounter for general adult medical examination without abnormal findings Lipid Panel Today Z00.00 - Encounter for general adult medical examination without abnormal findings Magnesium Today Z00.00 - Encounter for general adult medical examination without abnormal findings TSH reflex Free T4 Today Z00.00 - Encounter for general adult medical examination without abnormal findings Vitamin B12 and Folate Today Z00.00 - Encounter for general adult medical examination without abnormal findings Vitamin D 25-OH Total Today Z00.00 - Encounter for general adult medical examination without abnormal findings Referrals Gastroenterology Referral Z12.11 - Encounter for screening for malignant neoplasm of colon Urology Referral R21 - Rash and other nonspecific skin eruption, R68.82 - Decreased libido Medications: New cephalexin 500 mg PO Q6H 10 days 40 caps 0RF trazodone 50 mg PO BEDTIME PRN 90 tabs 1RF sleep prednisone see taper instructions; take 60 mg for 3 days, then take 50 mg for 3 days, then take 40 mg for 3 days, then take 30 mg for 3 days, then take 20 mg for 3 days, then take 10 mg for 3 days. For 18 day course. Dispense quantity sufficient 10 mg PO DIRECTED 63 tabs 0RF Patient Instructions: Patient Instructions - Follow up with Gastroenterology for a scheduled colonoscopy. - Contact charge machine operator regarding ongoing psoriasis treatment and coverage issues. - Complete blood work, ensuring fasting status beforehand. - Begin prescribed antibiotic and prednisone taper as directed. - Maintain current exercise and weight loss regimen. - Contact Urology for further evaluation of libido and related concerns. - for insomnia patient will be started on trazodone 50 mg for bedtime. - Return for a follow-up visit in three months to reassess treatment efficacy and clinical progress. Scribe Plan - Not visible on output: History of Present Illness The patient is a 44-year-old male presenting for his annual physical examination. He has a known history of psoriasis, which he manages primarily through biologic therapy. However, he faced issues with insurance coverage, leaving him unable to access this treatment recently. Previous therapy with [facility] was effective, but after a lapse in coverage, the patient switched insurance providers and faced denial of medication coverage from [facility]. He is currently awaiting a response from a specialty pharmacy regarding the continuation of this therapy. Psoriatic lesions cause significant discomfort, particularly when deposits occur in the groin area. The patient reports a long-standing diagnosis of Irritable Bowel Syndrome (IBS), which is currently unmanaged pharmacologically, and mentions experiencing non- solid bowel movements consistently for several years. The patient also has a history of hyperlipidemia, anxiety, and depression. He recalls being on anti- hypertensive medication approximately 15 years ago. Furthermore, he was initially diagnosed with mild Crohn's disease 15 years ago via colonoscopy and has not had a follow-up procedure since. Concerns about potential obstruction symptoms were addressed, though denied by the patient at this visit. Finally, lifestyle changes, including weight loss, are noted, though the patient's condition collectively affects his quality of life, causing significant discomfort and impacting interpersonal relationships. Patient also suffering from insomnia. Requesting something for sleep has been using [id number] medication with no symptomatic relief. Social History - Recent job change leading to a lapse in insurance coverage. - Reports actively exercising and losing weight. - Family history of hyperlipidemia; mother, father, and sister reportedly affected. Review of Systems - Gastrointestinal: Reports perennial non-solid bowel movements. - Dermatological: Reports persistent psoriatic lesions that are painful, especially in the groin area. - Musculoskeletal: No reports of joint pain or swelling. - Psychiatric: Reports of anxiety and depression. Physical Exam Appearance: Alert. Oriented X3. No acute distress. Head: Normal external exam. Normocephalic. Atraumatic. Eyes: Pupils are equal, round, and reactive to light. Extraocular movements intact. Conjunctiva and sclera normal. Eyelids normal. Ears: External auditory canal normal. Tympanic membranes normal. Throat: Pharynx normal. Uvula midline. Moist mucous membranes. Neck: Normal inspection. Neck supple. Full range of motion. No adenopathy. Thyroid Normal. No meningeal signs. No neck mass noted. Cardiovascular: Normal heart rate and rhythm. Heart sound normal. No murmurs noted. Pulses normal throughout. Respiratory: No respiratory distress. Painless inspiration. Breath sounds normal. No wheezes/rales/rhonchi noted. Chest nontender. No accessory muscle usage noted or decreased air movement noted. Abdomen: Soft and nontender. Bowel sounds normal in all 4 quadrants. No distention noted. No organomegaly noted. No visible injury noted. : To the head of the penis and the shaft of the penis patient has dry dermatitis/psoriasis. There is no foul odor, drainage or abnormal discharge from the penile. Not consistent with herpes, chancroid, lymphogranuloma venereum, Granuloma inguinale, genital warts, molluscum contagiosum, scabies. Back: No costovertebral angle tenderness. Full range of motion noted. Skin: Skin warm and dry. Normal skin color. Normal skin turgor. No rashes/lesions/lacerations noted. Extremities: No lower extremity edema. Extremities exhibit normal range of motion. Extremities nontender. Neuro: Oriented X 3. No motor deficit. No sensory deficit. Reflexes normal. Results - Labs: Previous liver enzyme tests were normal. Plan - Referral to Gastroenterology for colonoscopy due to a history of Crohn's disease. - Referral to Urology for potential low libido and skin issues, given the charge machine operator's ongoing management. - Prescribe an oral antibiotic and a prednisone taper for the psoriatic lesion flare-up. - Bloodwork to include CRP, hemoglobin A1c, lipid panel, PSA, TSH, vitamin , vitamin D, and testosterone levels. - Encourage continuation of exercise and weight management. - Monitor hyperlipidemia, with consideration of alternative non-statin therapies like coenzyme and fish oil. - for insomnia patient will be started on trazodone 50 mg for bedtime. Patient was informed and verbally consented to the use of an ambient scribe for clinic note documentation during this visit. Discussion Notes During the visit, I addressed the patient's concerns about persistently untreated psoriasis and difficulties with insurance coverage for biologics. We reviewed options such as oral antibiotics along with a prednisone regimen to mitigate current psoriatic outbreaks. I emphasized the importance of follow-up colonoscopy to assess for possible Crohn's progression, given the history and symptoms. Urology referral was advised to evaluate and manage potential libido and skin health issues. The patient expressed understanding and consented to recommended bloodwork and subsequent referrals. Patient Instructions - Follow up with Gastroenterology for a scheduled colonoscopy. - Contact charge machine operator regarding ongoing psoriasis treatment and coverage issues. - Complete blood work, ensuring fasting status beforehand. - Begin prescribed antibiotic and prednisone taper as directed. - Maintain current exercise and weight loss regimen. - Contact Urology for further evaluation of libido and related concerns. - Return for a follow-up visit in three months to reassess treatment efficacy and clinical progress. - for insomnia patient will be started on trazodone 50 mg for bedtime.
[2024-10-18 10:52] VITALS: BP 120/68; PULSE 77; TEMP 36.2; O2SAT 95
--- OUTSIDE RECORDS SUMMARY | 2024-10-18 11:13 | XMS_ITS | Patient Health Record ---
Author Organization Frank Monserrat Westley ARELLANO, FAC Address [address] [place] [phone] Care Team Providers Care Supervisor Painting Department Name Role Phone Frank Christy Primary Care Provider ALLERGIES No Known Allergies REASON FOR REFERRAL No Information MEDICATIONS Medication SIG (Take, Route, Frequency, Duration) Notes Start Date End Date Status Vitamin D (Cholecalciferol) 25 MCG (1000 UT) 1 tablet Orally Once a day for 90 days 06/20/2021 Active Dicyclomine HCl 20 MG TAKE 1 TABLET BY M OUTH THREE TIMES A DAY for 90 Active Atorvastatin Calcium 20 MG 1 tablet Oral ly Once a day for 90 days 06/20/2021 Active IMMUNIZATIONS Vaccine Route Administration Date Status Comme nts TDaP IM Intramuscular 01/04/2021 Administered SOCIAL HISTORY Tobacco Use: Social History Observation Description Date Details (start date - stop date) Never Smoker NA - NA Sex Assigned At : Social History Observation Description Sex Assigned At Unknown Tobacco Use/Smoking Question Answer Notes Patient is a nonsmoker Additional Findings: Tobacco Non-User Cu rrent non-smoker, currently using no form of tobacco Alcohol Screen Question Answer Notes Did you have a drink contain ing alcohol in the past year? Yes How often did you have a dri nk containing alcohol in the past year? 4 or more times a week (4 points) How many drinks did you have on a typical day when you were drinking in the past year? 1 or 2 drinks (0 point) How often did you have 6 or more drinks on one occasion in the past year? 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) Active confirmed 04499604 Problem Hypercholesterolemia (E78.00) Active confirmed 87503196 Problem Irritable bowel syndrome with diarrhea (K58.0) Active confirmed [id number] Encounters Encounter Location Date Provider Diagnosis Frank Christy DO, FACP [address] [place] [address] [phone] 09/06/2024 Frank Christy PLAN OF TREATMENT No Information Insurance Providers Payer Name Payer Address Payer Phone Subscriber Number Group Number Insured Name Patient Relationship to Insured Coverage Start Date Coverage End Date [facility] [address] [facility] [id number] [place] [phone] [id number] Fran Perry Self - patient is the insured MEDICAL (GENERAL) HISTORY Medical History History ICD Code irritable bowel syndrome hypercholesterolemia hypertension anxiety depression allergies Surgical History Surgery Date(Month/Year) hydrocele repair skin lesion removal
--- OUTSIDE RECORDS SUMMARY | 2024-10-18 11:13 | XMS_ITS ---
Author Organization Frank Christy DO, FACP Address [address] [place], [place] [id number] Care Team Providers Care Rock Breaker Name Role Phone Frank Christy Primary Care Provider Encounters Encounter Location Date Provider Diagnosis Frank Christy DO, FACP [address] [place] [phone] 09/06/2024 Frank Christy PLAN OF TREATMENT No Information
== END 2024-10-18 11:32 | disposition home or self-care (01) ==
LOC: HO.HMCSH 10:37
PROVIDERS: PCP Internal Medicine; Visit Provider Physician Assistant Medical
DX: K58.9 Irritable bowel syndrome, unspecified (principal); E78.00 Pure hypercholesterolemia, unspecified; I10 Essential (primary) hypertension; F41.9 Anxiety disorder, unspecified; F32.A Depression, unspecified; T78.40XA Allergy, unspecified, initial encounter; R21 Rash and other nonspecific skin eruption; R68.82 Decreased libido; G47.00 Insomnia, unspecified; E66.811 Obesity, class 1; Z00.00 Encounter for general adult medical examination without abnormal findings

== ENCOUNTER 2024-12-13 08:56 | Outpatient (AMB) | payer OTHER, SELFPAY ==
--- NOTE | 2024-12-13 09:01 | MHC.OFFVIS ---
Intake Visit Reasons: Rash on head of penis and decreased libido Intake Note: Patient is present for RASH ON HEAD OF PENIS AND DECREASED LIBIDO Urology Medication:NONE Antibiotic Allergy:NONE Blood Thinner:NONE Supply Chain Logistics Manager Required: No Allergies No Known Allergies Allergy (Verified 12/13/24 10:26) Medication List - Last Reconciled 12/13/24 by NARENDRA Galeana atorvastatin 10 mg PO BEDTIME cholecalciferol (vitamin D3) 1,250 mcg PO QWEEK 3 months tadalafil (Cialis) 20 mg PO .PRN PRN 30 days tadalafil (Cialis) 5 mg PO DAILY 90 days trazodone 50 mg PO BEDTIME PRN HPI Comments Details: Omega is a 44-year-old male patient of Dr. Baker. He has a past medical history of psoriasis, gynecomastia, insomnia, low libido, allergies, depression, anxiety, hypertension, hypercholesteremia, and irritable bowel syndrome. He presents to the office today as a new patient for ED and a penile rash. In discussion with the patient today he reports having followed up with his PCP in discussing ongoing issues with ED and a penile rash at which time recommendations were made for urology referral for further assessment evaluation. The patient discusses following up with dermatology as he has a longstanding history of psoriasis and being told he also has psoriasis on his penis. He reports previously being on Tremfya at which time psoriasis was well controlled however had a change in insurance and was not able to have prior authorization for this medication and feels rash on his penis has come back. Physical assessment was offered however deferred by the patient as well as REYES. In review of patient's chart it appears testosterone labs are as follows: Testosterone: 10/24 564 We discussed at length potential causes of erectile dysfunction as well as further treatment options and risks and benefits of these treatment options. He discusses having trialed ED medications through 3rd constitution party online [facility]. He discusses feeling ED initially started after hydrocelectomy over 10-15 years ago. He reports having had hydrocelectomy here however in review of historical visits I was unable to obtain any of these records. He reports being able to obtain an erection however does not feel it is adequate for penetration. He denies any previous trauma and or recreational drug use. We discussed importance of avoiding pyelography as this can exacerbate this urological concerns. He otherwise denies any bothersome urinary issues. He denies urinary urgency, urinary frequency, incontinence, nocturia, hematuria, dysuria, foul smelling urine, changes to urinary stream, flank pain, fever, and or chills. He is happy with his current voiding parameters. In office urinalysis results reviewed with the patient today. All questions were answered. He otherwise offers no other issues or concerns at this time. Plan For the genital psoriasis, continuation of care with a marble cutter is advised due to the expanding nature of his rash and declined assessment at todays visit. The patient is currently fighting insurance issues to regain access to previous effective medication, Tremfaya. For erectile dysfunction, penile injection therapy was proposed, given the failure of oral medications and resultant side effects. This option was discussed in detail, including the administration, risks, precautions, and the next steps for implementation. Additionally, penile pumps and constriction rings were explained as adjunct options to achieve better erectile function. Avoidance of pornography is recommended as it could exacerbate the problem. I will coordinate prostate health assessment relevant to his ED complaint for future visits. Patient was informed and verbally consented to the use of an ambient scribe for clinic note documentation during this visit. Discussion Notes During our discussion, I reviewed with the patient his genital psoriasis and its management. We addressed the recurrence and challenges faced due to insurance-related obstacles concerning Tremfaya. For his erectile dysfunction, we explored several treatment alternatives including penile injection therapy, which was discussed in depth regarding its application, possible side effects, and need for patient education in a follow-up appointment. Conservative measures such as penile pumps and rings were also introduced. Emphasizing precautionary measures, particularly around priapism, was necessary. The patient agreed to the proposed plan, understanding both benefits and risks, including avoiding pornography and ongoing lifestyle modifications. Consent for progression with penile injections was obtained after patient recall of symptoms. Follow-up arrangements were made based on this education, and we will continue monitoring alongside plans to assess prostate risks. [facility] Medical History History of gynecomastia History of mammogram (~06/20/21) Insomnia Obesity (BMI 30.0-34.9) Low libido Rash of penis Colon cancer screening Allergies Depression Anxiety Hypertension Mild hypercholesterolemia Irritable bowel syndrome Surgical History History of hydrocelectomy Family History Maternal Grandfather Bone cancer Metastatic cancer to brain Paternal Grandmother Leukemia Maternal Aunt Breast cancer, Onset Age: 60 Maternal Uncle Skin cancer Social History Alcohol intake: current Alcohol intake frequency: holidays/special occasions only Patient Tobacco Use Status: Never used Tobacco Second Hand Smoke Exposure: No Review of Systems Const All systems reviewed & are unremarkable except as noted in HPI and below Physical Exam Const General: cooperative, healthy appearing, comfortable, no acute distress, well developed, alert and awake Orientation/consciousness: patient oriented x3 Limitations: no limitations HEENT Head: Yes normal to inspection, Yes normocephalic and Yes atraumatic Ears: hearing grossly normal bilaterally Eyes General: appearance normal, both eyes and all related structures Neck Neck: Yes normal visual inspection and Yes trachea midline Chest Chest palpation & inspection: normal inspection of the chest Resp Effort & Inspection: normal respiratory effort and able to speak in complete sentences Cardio Rate: regular rate GI Inspection: Yes normal to inspection Other: Deferred General: Yes no CVA tenderness Back/Spine/Pelvis Back: no CVA tenderness Skin General skin exam: no rashes or lesions noted Neuro General: patient oriented x3 Extrem General: Yes normal to inspection Psych Appearance: grossly normal and well kempt Mental Status: mental status grossly normal Speech and movement: Normal speech and movement present and Clear speech present Affect: normal affect Attitude: cooperative Thought process: Normal thought process present Thought content: Normal thought content present Insight: Fair insight present (Psych) Judgement: Fair judgement present (Psych) Results AMB Urinalysis, Automated UA Leukoctes 0 Lizzie/uL Last Edit by JOHNNY Dietrich on 12/13/24 09:15 UA Nitrite Negative Last Edit by JOHNNY Dietrich on 12/13/24 09:15 UA Urobilinogen 0.2 mg/dL Last Edit by JOHNNY Dietrich on 12/13/24 09:15 UA Protein 15 mg/dL Last Edit by JOHNNY Dietrich on 12/13/24 09:15 UA pH 5.5 Last Edit by JOHNNY Dietrich on 12/13/24 09:15 UA Blood 10 Vikas/uL Last Edit by JOHNNY Dietrich on 12/13/24 09:15 UA Specific [place] 1.030 Last Edit by JOHNNY Dietrich on 12/13/24 09:15 UA Ketone Negative Last Edit by JOHNNY Dietrich on 12/13/24 09:15 UA Bilirubin 0 mg/dL Last Edit by JOHNNY Dietrich on 12/13/24 09:15 UA Glucose 0 mg/dL Last Edit by JOHNNY Dietrich on 12/13/24 09:15 Results Reviewed Results Reviewed: Laboratory Last Values Urine pH (Auto) 5.5 12/13/24 09:14 Specific [place] (Auto) 1.030 12/13/24 09:14 Urine Protein (Auto) 15 mg/dL 12/13/24 09:14 Glucose (UA)(Auto) 0 mg/dL 12/13/24 09:14 Urine Ketones (Auto) Negative 12/13/24 09:14 Urine Blood (Auto) 10 Vikas/uL 12/13/24 09:14 Urine Nitrite (Auto) Negative 12/13/24 09:14 Urine Bilirubin (Auto) 0 mg/dL 12/13/24 09:14 Urine Urobilinogen (Auto) 0.2 mg/dL 12/13/24 09:14 Leukocyte Esterase (Auto) 0 Lizzie/uL 12/13/24 09:14 Assessment & Plan Assessment & Plan (1) Rash of penis: Code(s): R21 - Rash and other nonspecific skin eruption Category: Medical (2) Erectile dysfunction: Code(s): N52.9 - Male erectile dysfunction, unspecified Category: Medical Plan In office urinalysis results reviewed with the patient today; as noted above. Most recent testosterone results reviewed with the patient today; as noted above. Patient currently denies any bothersome urinary issues or concerns. He reports be happy with current voiding parameters. Patient deferred assessment today Will continue to follow-up with dermatology regarding penile rash as he believes this is related to his psoriasis. We discussed at length potential causes of erectile dysfunction as well as further treatment options and risks and benefits of these treatment options. Start 5 mg Cialis as discussed and prescribed. Prescription provided for p.r.n. dosing. We discussed at length lifestyle modifications to assist with ED. Reviewed penile pump Will obtain PSA Follow-up in 3 months with PSA; or sooner with any issues, concerns, and or questions. Orders: Orders Prostate Specific Antigen Today N52.9 - Male erectile dysfunction, unspecified AMB Urinalysis Automated Today Z13.9 - Encounter for screening, unspecified Medications: New tadalafil (Cialis) administer approximately 30min before sexual activity; do not use more than 1 dose per 24hrs [id number] [facility] Member [id number] 20 mg PO .PRN PRN 14 tabs 3RF sexual activity 30 days tadalafil (Cialis) [id number] [facility]33 Member [id number] 5 mg PO DAILY 90 tabs 1RF 90 days Patient Instructions: The patient had an opportunity to ask questions regarding the treatment plan. All questions were answered. Physical exam, labs, and imaging were discussed and reviewed in detail. As well as risks, benefits, and discussion of treatment choices. No major barriers to understanding were identified. The patient expressed understanding and agreement with the above treatment plan. The patient was made aware they should contact our office by phone for worsening of their current condition, the appearance of new symptoms, or with any questions or concerns. Compliance is encouraged with any medications and follow up testing that is ordered. It is a privilege to be allowed the opportunity to participate in? your urological care.? Again, if you have any questions or concerns If you have any questions or concerns please do not hesitate to contact me. The office is [phone]. This note is constructed using voice recognition software. While every effort has been made to ensure accuracy photo studio assistant errors may have been included. Yours sincerely, NARENDRA Galeana Coding Level of Care Code New Pt Level 4 (27836) Diagnoses Rash of penis R21 Erectile dysfunction N52.9
--- OUTSIDE RECORDS SUMMARY | 2024-12-13 09:29 | XMS_ITS | Continuity of Care Document ---
Author Organization [facility] Address [address] [facility] [place] [address] Phone Care Team Providers Care Lower School Music Teacher Name Role Phone Brittney Christie Unavailable Unavailable [...] Longer Active Procedures Procedure Date Offic/outpt E&m [facility] Mod-hi 2 21 Offic/outpt E&m New Mod Sever 0 Advance Directives Directive Yes / No Effective Date File Name No Information Encounters Encounter Description Practice Location Reason(s) For Visit Diagnoses Date Provider Providers Copied on Encounter Offic/outpt E&m [facility] Mod-hi 2 [facility] Nurse Aide s, [address] [facility] [address] [facility], [place], [id number] , tel:[phone] JYOTI Freeman palpitations (chief complaint) PalpitationsPanic attack 1 Shannon Lugo. [address] [facility] [place] [address], [place], [id number] , . tel:[phone] Referring Provider: Kristy Brunner, [address] [place] [address], [place], [address] . tel:[phone] [facility] Associate s, [address] [facility] [address], [id number] , tel:[phone] JYOTI Freeman No Information 1 Ari Wagner. [address], [place], [place], [id number] , [place]. tel:[phone] Offic/outpt E&m [facility] Nurse Aide s, [address], [place], [place], [id number] , tel:[phone] JYOTI Freeman Anxiety (chief complaint) Generalized Anxiety Disorder 0 Ari Wagner. [address], [place], [place], [id number] , [place]. tel:[phone] Referring Provider: Kristy Brunner [address] [facility], [place], [address] . tel:[phone] Family History Family Member Type Diagnosis Age At Onset Father Problem Crohn's disease Father Problem alcoholism Father Problem alzheimer's disease Mother Problem Lymphoma Payers Payer name Insurance type Covered constitution party ID Minesh jean(s) [employer] [facility] [id number] Social History Type Description Quantity Date Captured [...] normal workups. He wants to see a regional intermodal truck driver. Admits to having panicattacks. Has been smoking [...] normal workups. He wants to see a regional intermodal truck driver. Admits to having panic attacks. Has been [...] Mental Status Date Cognitive Assessment Orientation - Mud[place] ed to time, place, person, situation. Patient Care Teams Name Effective Dates (start - stop) Status Members No Information
--- OUTSIDE RECORDS SUMMARY | 2024-12-13 09:29 | XMS_ITS | Continuity of Care Document ---
Author Organization [email or web address] [facility] [facility] Address [address] [place] [address] Phone Care Team Providers Care Sheep Rancher Name Role Phone Unavailable Unavailable Unavailable Advance Directives Directive Yes / No Effective Date File Name No Information Encounters Encounter Description Practice Location Reason(s) For Visit Diagnoses Date Provider Providers Copied on Encounter [email or web address] [facility] [facility], [address], [place], [place], [id number], tel:[phone] [facility] No Information 201 8 No Information Family History Family Member Type Diagnosis Age At Onset No Information Payers Payer name Insurance type Covered green party ID Authoriza tion(s) No Information Social [...]
== END 2024-12-13 09:43 | disposition home or self-care (01) ==
LOC: HO.HUSH 08:57
PROVIDERS: PCP Internal Medicine; Visit Provider Nurse Practitioner Family
DX: R21 Rash and other nonspecific skin eruption (principal); N52.9 Male erectile dysfunction, unspecified; Z13.9 Encounter for screening, unspecified
CPT/HCPCS: 99204

== ENCOUNTER → 2024-12-13 08:56 | Outpatient (BNVA) | payer OTHER, SELFPAY | PROVIDERS: PCP Internal Medicine; Visit Provider Nurse Practitioner Family | DX: R21 Rash and other nonspecific skin eruption (principal); N52.9 Male erectile dysfunction, unspecified | CPT/HCPCS: 81003 ==

== ENCOUNTER 2024-12-14 12:30 | Outpatient (REF) | payer OTHER, SELFPAY ==
--- OUTSIDE RECORDS SUMMARY | 2024-12-14 15:16 | XMS_ITS | Continuity of Care Document ---
Author Organization [facility] Address [address] [facility] [place] [address] Phone Care Team Providers Care Success Coach Name Role Phone Brittney Christie Unavailable Unavailable [...] Longer Active Procedures Procedure Date Offic/outpt E&m [facility] Mod-hi 2 21 Offic/outpt E&m New Mod Sever 0 Advance Directives Directive Yes / No Effective Date File Name No Information Encounters Encounter Description Practice Location Reason(s) For Visit Diagnoses Date Provider Providers Copied on Encounter Offic/outpt E&m [facility] Mod-hi 2 [facility] Soa Architect s, [address] [facility] [address] [facility], [place], [id number] , tel:[phone] JYOTI Freeman palpitations (chief complaint) PalpitationsPanic attack 1 Shannon Lugo. [address] [facility], [place] [address], [place], [address] , . tel:[phone] Referring Provider: Kristy Brunner, [address] [place] [address], [place], [address] . tel:[phone] [facility] Associate s, [address], [id number] , tel:[phone] JYOTI Freeman No Information 1 Ari Wagner. [address], [place], [place], [id number] , [place]. tel:[phone] Offic/outpt E&m [facility] Soa Architect s, [address], [place], [place], [address] , tel:[phone] JYOTI Freeman Anxiety (chief complaint) Generalized Anxiety Disorder 0 Ari Wagner. [address], [place], [place], [address] , [place]. tel:[phone] Referring Provider: Kristy Brunner [address] [facility], [place], [address] . tel:[phone] Family History Family Member Type Diagnosis Age At Onset Father Problem Crohn's disease Father Problem alcoholism Father Problem alzheimer's disease Mother Problem Lymphoma Payers Payer name Insurance type Covered democrat ID Minesh jean(s) [employer] [facility] [id number] Social History Type Description Quantity Date Captured [...] normal workups. 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 Admits to having panicattacks. Has been smoking [...] normal workups. 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 Admits to having panic attacks. Has been [...] Mental Status Date Cognitive Assessment Orientation - [place] ed to time, place, person, situation. Patient Care Teams Name Effective Dates (start - stop) Status Members No Information
== END 2024-12-14 12:31 | disposition home or self-care (01) ==
LOC: HO.HMGCLDS 12:30
PROVIDERS: PCP Internal Medicine; Visit Provider Nurse Practitioner Family
DX: N52.9 Male erectile dysfunction, unspecified (principal)
CPT/HCPCS: 36415; 84153

== ENCOUNTER 2025-01-16 08:57 | Outpatient (AMB) | payer OTHER, SELFPAY ==
[2025-01-16 09:04] VITALS: BP 131/77; PULSE 60; RESP 14; TEMP 36.7; O2SAT 99; BMI 29.4
--- NOTE | 2025-01-16 09:04 | A.OFFPC_ITS ---
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: No Accompanied by: Self / Same As Patient Allergies No Known Allergies Allergy (Verified 01/16/25 13:55) Medication List - Last Reconciled 01/16/25 by Dena Tubbs PA-C atorvastatin 10 mg PO BEDTIME cephalexin 500 mg PO Q6H 10 days cholecalciferol (vitamin D3) 1,250 mcg PO QWEEK doxycycline monohydrate 100 mg PO BID 10 days gentamicin 0.1% 1 appl topical BID risankizumab-rzaa (Skyrizi) mg subcut tadalafil (Cialis) 20 mg PO .PRN PRN 30 days tadalafil (Cialis) 5 mg PO DAILY 90 days trazodone 50 mg PO BEDTIME PRN Tobacco use date assessed: 01/16/25 Dental Screening Dental Screen Date: 01/16/25 Did you have a dental visit in the last 12 months?: No Did you have a dental problem in the last 6 months where you did not have access to dental care?: No HPI 3 month f/u 2 HPI Details The patient is a 44-year-old male presenting for follow-up for his chronic medical conditions. He would also like to discuss an infection on right great toe following trauma. The incident occurred when the patient accidentally caught his toe under a door, resulting in bleeding and subsequent oozing from the nail bed. He experiences significant discomfort and finds it challenging to wear shoes for work. The toe appears swollen and red, with discharges suggesting infection. Temporary relief measures such as meen-xxa-imxqveh creams and alcohol have been ineffective. His medical history includes psoriasis, treated with Skyrizi injections, and ongoing allergic rhinitis managed with antihistamines such as Claritin and Zyrtec. Additionally, he reports symptoms of hypogonadism explored with urology, where testosterone levels were noted, although he expresses concerns about low levels despite current management with Cialis. Patient reports he is not interested in penile injections or a penile pump. 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, reports no seating availability - Medication: Taking Zyrtec for allergy and has tried ixbz-ysw-oaoddpx creams and alcohol for the toe injury - Treatment and concerns: Concerned abou t testosterone levels and uncomfortable with proposed invasive treatments - Current nutritional intake: No specifi c dietary habit changes noted [facility] Medical History (Updated 01/16/25 @ 14:01 by Dena Tubbs PA-C) Overweight with body mass index (BMI) of 29 to 29.9 in adult Psoriasis Cellulitis of great toe, right Traumatic onycholysis History of gynecomastia History of mammogram (~06/20/21) Insomnia Obesity (BMI 30.0-34.9) Low libido Rash of penis Colon cancer screening Allergies Depression Anxiety Hypertension Mild hypercholesterolemia Irritable bowel syndrome Surgical History History of hydrocelectomy Family History Maternal Grandfather Bone cancer Metastatic cancer to brain Paternal Grandmother Leukemia Maternal Aunt Breast cancer, Onset Age: 60 Maternal Uncle Skin cancer Social History Housing: House Alcohol intake: current Alcohol intake frequency: a few times a month Patient Tobacco Use Status: Never used Tobacco Second Hand Smoke Exposure: No service: No Current occupational status: employed Cognitive needs: No Hearing needs: No Vision needs: Yes (rx glasses) Questionnaire PHQ-9 Over the last 2 weeks, how often have you been bothered by any of the following problems? 1. Little interest or pleasure in doing things: several days 2. Feeling down, depressed, or hopeless: several days 3. Trouble falling or staying asleep, or sleeping too much: nearly every day 4. Feeling tired or having little energy: nearly every day 5. Poor appetite or overeating: not at all 6. Feeling bad about yourself - or that you are a failure or have let yourself or your family down: several days 7. Trouble concentrating on things, such as reading the newspaper or watching television: not at all 8. Moving or speaking so slowly that other people could have noticed. Or the opposite - being so fidgety or restless that you have been moving around a lot more than usual: not at all 9. Thoughts that you would be better off or of hurting yourself in some wa y: not at all Total score: 9 Depression Screening Interpretation: Positive Depression Screening Follow-up: Existing condition Depression Screening Done: Yes 12967 - PHQ-9 Billing: Yes Source: Developed by Drs. Frank Camp, Genny Rice, Carlos A Harrison and colleagues, with an educational jose alfredo from [employer]. Thrive Questionnaire Date Thrive assessed: 01/16/25 I am a: Patient What is your living situation today?: I have a steady place to live Within the past 12 months, did the food you bought not last and you didn't have the money to get more?: Never true Within the past 12 months, did you worry whether your food would run out before you got money to buy more?: Never true Do you have trouble paying for medicines?: No Do you have trouble getting transportation to medical appointments?: No Do you have trouble paying your heating and electricity bill?: No Do you have trouble taking care of your child, family member or friend?: No Do you have trouble with day-to-day activities such as bathing, preparing meals, shopping, managing finances, etc.?: No Are you currently unemployed and looking for a job?: No Are you interested in more education?: No Please select the resources that you would like help with: None THRIVE Score: 0 AUDIT C Alcohol Use Questionnaire (AUDIT-C) 1. How often do you have a drink containing alcohol?: 2-4 times a month 2. How many drinks containing alcohol do you have on a typical day when you are drinking?: 1 or 2 3. How often do you have six or more drinks on one occasion?: Never Total Score: 2 Score Reviewed/Action Taken: No SETH-7 AMB Questionnaire SETH-7 Date SETH - 7 assessed: 01/16/25 Feeling nervous, anxious, or on edge: 3 = Nearly every day Not being able to stop or control worryin = Several days Worrying too much about different things: 1 = Several days Trouble relaxin = Not at all Being so restless that it is hard to sit still: 0 = Not at all Becoming easily annoyed or irritable: 1 = Several days Feeling afraid as if something awful might happen: 0 = Not at all Total SETH-7 score (0-4 normal; 5-9 mild; 10-14 moderate; 15-21 severe): 6 Source: Developed by Drs. Frank Camp, Genny Rice, Carlos A Harrison and colleagues, with an educational jose alfredo from [employer]. SETH-7 Assessment Billing SETH-7 Assessment Tool: SETH-7 Assessment 63985 Review of Systems Const Details: - Dermatological: Reports rash described as psoriasis - Musculoskeletal: Reports significant pain in the right great toe - Respiratory: chronic allergies - Genitourinary: Discussed concerns about testosterone levels of 500 and erectile dysfunction Physical exam (Primary Care) Vital Signs: Last Vital Signs Temp 98.0 F 01/16/25 09:04 Pulse 60 01/16/25 09:04 Resp 14 01/16/25 09:04 BP 131/77 01/16/25 09:04 Pulse Ox 99 01/16/25 09:04 Oxygen Delivery Method Room Air 01/16/25 09:04 Care Plan Goal for BP management: <140/90 at Goal BMI result Body Mass Index 29.4 BMI Assessment/Plan discussion: High BMI High, discussed plan: lifestyle, weight reduction, dietary, physical activity and alcohol moderation Tobacco/Smoking Status: Tobacco use Status Tobacco use date assessed 01/16/25 01/16/25 09:14 Patient Tobacco Use Status Never used Tobacco 01/16/25 09:14 PHQ-9: PHQ-9 Score PHQ-9: Total score 9 01/16/25 09:14 Depression Screening Interpretation: Positive Depression Screening Follow-up: Existing condition Thrive Assessment: Date of Thrive Assessment Date Thrive assessed 01/16/25 01/16/25 09:14 Const Other: Appearance: Alert. Oriented X3. No acute distress. Head: Normal external exam. Normocephalic. Atraumatic. Eyes: Pupils are equal, round, and reactive to light. Extraocular movements intact. Conjunctiva and sclera normal. Eyelids normal. Throat: Pharynx normal. Uvula midline. Moist mucous membranes. Neck: Normal inspection. Neck supple. Full range of motion. Cardiovascular: Normal heart rate and rhythm. Heart sound normal. No murmurs noted. Pulses normal throughout. Respiratory: No respiratory distress. Painless inspiration. Back: No costovertebral angle tenderness. Full range of motion noted. Skin: Skin warm and dry. Normal skin color. Normal skin turgor. No rashes/lesions/lacerations noted. Extremities: Right great toe nail intact although there is discoloration of the nail and the nail bed is lifted. There is mild serosanguineous drainage, surrounding erythema. No paronychia noted. No fluctuance, streaking, foreign bodies noted at this time. Patient has full range motion of the right great toe and all other toes and ankle and foot joint. Otherwise all other extremities exhibit normal range of motion nontender. Neuro: Oriented X 3. No motor deficit. No sensory deficit. Reflexes normal. Coding Level of Care Code Est Pt Level 4 (52996) Complex EM visit Add On G2211 Diagnoses Traumatic onycholysis L60.1 Cellulitis of great toe, right L03.031 Allergies T78.40XA Psoriasis L40.9 Erectile dysfunction N52.9 Overweight with body mass index (BMI) of 29 to 29.9 in adult E66.3; Z68.29 Additional Codes PHQ-9 - 30022 - PHQ-9 Billing: Yes ([id number]) SETH-7 Assessment Billing - SETH-7 Assessment Tool: SETH-7 Assessment 00066 ([id number]) Assessment & Plan Assessment & Plan (1) Traumatic onycholysis: Code(s): L60.1 - Onycholysis Category: Medical Plan: Patient will be treated with doxycycline and Keflex, topical gentamicin. With daily dressing changes. Patient declined Podiatry referral at this time. Condition is acute and stable will continue to monitor. (2) Cellulitis of great toe, right: Code(s): L03.031 - Cellulitis of right toe Category: Medical Plan: Condition is acute and stable will continue to monitor. (3) Allergies: Code(s): T78.40XA - Allergy, unspecified, initial encounter Category: Medical Plan: Continue Zyrtec. Addressed photosensitivity while on doxycycline by avoiding sun. Condition is chronic and stable continue to monitor. (4) Psoriasis: Code(s): L40.9 - Psoriasis, unspecified Category: Medical Plan: Plan: Continue Skyrizi injections; coordinate with insurance to maintain psoriasis control. Condition is chronic and stable will continue to monitor. (5) Erectile dysfunction: Code(s): N52.9 - Male erectile dysfunction, unspecified Category: Medical Plan: Plan: Follow up with Dr. Cleaning regarding testosterone levels and explore po tential alternative treatments. Condition is chronic and stable continue to monitor. (6) Overweight with body mass index (BMI) of 29 to 29.9 in adult: Code(s): E66.3 - Overweight; Z68.29 - Body mass index [BMI] 29.0-29.9, adult Category: Medical Plan: Patient is a improved diet and exercise regimen. Condition is chronic and stable continue to monitor. Plan Plan Patient was informed and verbally consented to the use of an ambient scribe for clinic note documentation during this visit. 1. Traumatic Onycholysis With Secondary Infection Of The Right Great Toe Plan: Initiate oral antibiotics Doxycycline and Cephalexin, and apply topical Gentamicin to prevent shoe-related infections. Limit shoe wear to reduce moisture and bacteria exposure. 2. Allergic Rhinitis Plan: Continue with Claritin B, with the option to switch to Zyrtec. Address photosensitivity while on Doxycycline by avoiding sun. 3. Psoriasis Plan: Continue Skyrizi injections; coordinate with insurance to maintain psoriasis control. 4. Erectile dysfunction Plan: Follow up with Dr. Cleaning regarding testosterone levels and explore potential alternative treatments. I discussed with the patient the likelihood of a secondary infection in the right great toe due to the traumatic incident involving the toenail. I recommended initiating antibiotics, specifically Doxycycline and Cephalexin, and topical Gentamicin to manage and prevent potential bacterial infection, notably Pseudomonas. I emphasized the importance of avoiding moisture and using non- occlusive dressings for optimal recovery. Additionally, I advised the patient to continue using antihistamines for allergic rhinitis and provided instructions regarding potential side effects, such as increased photosensitivity with Doxycycline. Regarding psoriasis, we discussed the ongoing Skyrizi treatment and upcoming administrative facilitation with insurance. For suspected hypogonadism concerns, I recommended further consultation with a urologist, particularly Dr. Cleaning, to address testosterone replacement possibilities instead of invasive procedures. I also encouraged the patient to follow through with pending evalu ation like colonoscopy and monitor any signs of toe infection requiring urgent attention. Medications: New doxycycline monohydrate 100 mg PO BID 20 tabs 0RF 10 days cephalexin 500 mg PO Q6H 40 caps 0RF 10 days gentamicin 0.1% 1 appl topical BID 30 grams 1RF Patient Instructions: - Take all prescribed medications as directed. - Avoid wearing shoes whenever possible to prevent further injury or infection. - Use ctbc-zhl-oegycnt antiseptic solutions as needed for cleaning; avoid excessive water exposure. - Consider switching allergy medication to Zyrtec if Claritin B is not effective. - Contact the office immediately if the toe's condition worsens or if new symptoms arise. - Follow up with urology as previously arranged and discuss the possibility of hormone evaluation or alternative therapies. - Check with your insurance for continuation of Skyrizi for psoriasis treatment. - Seek immediate care if you experience new concerning symptoms. - Schedule a colonoscopy as previously recommended and coordinate with care providers.
--- OUTSIDE RECORDS SUMMARY | 2025-01-16 09:25 | XMS_ITS | Continuity of Care Document ---
Author Organization [facility] Address [address] [facility] [place] [address] Phone Care Team Providers Care Dynamometer Tester Name Role Phone Brittney Christie Unavailable Unavailable [...] Longer Active Procedures Procedure Date Offic/outpt E&m [facility] Mod-hi 2 21 Offic/outpt E&m New Mod Sever 0 Advance Directives Directive Yes / No Effective Date File Name No Information Encounters Encounter Description Practice Location Reason(s) For Visit Diagnoses Date Provider Providers Copied on Encounter Offic/outpt E&m Estab Mod-hi 2 [facility], [address] [facility], [place], [id number] , tel:[phone] JYOTI Freeman palpitations (chief complaint) PalpitationsPanic attack 1 Shannon Lugo. [address] [place] [address], [id number] , . tel:[phone] Referring Provider: Kristy Brunner, [address] [place] [address], [place], [address] . tel:[phone] [facility], [address], [id number] , tel:[phone] JYOTI Freeman No Information 1 Ari Wagner. [address], [place], [place], [id number] , [place]. tel:[phone] Offic/outpt E&m [facility], [address], [place], [place], [id number] , tel:[phone] JYOTI Freeman Anxiety (chief complaint) Generalized Anxiety Disorder 0 Ari Wagner. [address], [place], [place], [id number] , [place]. tel:[phone] Referring Provider: Kristy Brunner [address] [facility], [place], [address] . tel:[phone] Family History Family Member Type Diagnosis Age At Onset Father Problem Crohn's disease Father Problem alcoholism Father Problem alzheimer's disease Mother Problem Lymphoma Payers Payer name Insurance type Covered constitution party ID Minesh jean(s) [employer] [facility] [id number] Social History Type Description Quantity Date Captured [...] normal workups. He wants to see a automated manufacturing instructor. Admits to having panicattacks. Has been smoking [...] normal workups. He wants to see a automated manufacturing instructor. Admits to having panic attacks. Has been [...] Mental Status Date Cognitive Assessment Orientation - [place] ed to time, place, person, situation. Patient Care Teams Name Effective Dates (start - stop) Status Members No Information
--- OUTSIDE RECORDS SUMMARY | 2025-01-16 09:25 | XMS_ITS | Continuity of Care Document ---
Author Organization [facility] Address [address] [place] [address] Phone Care Team Providers Care Rayon Coner Name Role Phone Unavailable Unavailable Unavailable Advance Directives Directive Yes / No Effective Date File Name No Information Encounters Encounter Description Practice Location Reason(s) For Visit Diagnoses Date Provider Providers Copied on Encounter [facility], [address], [place], [place], [id number], tel:[phone] [facility] No Information 201 8 No [...]
== END 2025-01-16 09:49 | disposition home or self-care (01) ==
LOC: HO.HMCSH 08:57
PROVIDERS: PCP Internal Medicine; Visit Provider Physician Assistant Medical
DX: L60.1 Onycholysis (principal); L03.031 Cellulitis of right toe; T78.40XA Allergy, unspecified, initial encounter; L40.9 Psoriasis, unspecified; N52.9 Male erectile dysfunction, unspecified; E66.3 Overweight; Z68.29 Body mass index [BMI] 29.0-29.9, adult

== ENCOUNTER → 2025-01-16 08:57 | Outpatient (BNVA) | payer OTHER, SELFPAY | PROVIDERS: PCP Internal Medicine; Visit Provider Physician Assistant Medical | DX: L60.1 Onycholysis (principal); L03.031 Cellulitis of right toe; E29.1 Testicular hypofunction; L40.9 Psoriasis, unspecified; N52.9 Male erectile dysfunction, unspecified; E66.3 Overweight; Z68.29 Body mass index [BMI] 29.0-29.9, adult; Z91.09 Other allergy status, other than to drugs and biological substances | CPT/HCPCS: 96127 ==

== ENCOUNTER 2025-03-12 07:35 | Outpatient (AMB) | payer OTHER, SELFPAY ==
--- NOTE | 2025-03-12 07:40 | MHC.OFFVIS ---
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 Baker. He has a past medical history of psoriasis, gynecomastia, insomnia, low libido, allergies, depression, anxiety, hypertension, hypercholesteremia, and irritable bowel syndrome. He presents to the office today for follow-up. Of note, patient was seen approximately 3 months ago as a new patient for ED and a penile rash at which time he was prescribed daily dosing of tadalafil with p.r.n. dosing prior to sexual activity and a PSA was ordered for further assessment evaluation. These results were reviewed and communicated with the patient today as noted and trended below. In discussion with the patient today he reports feeling he has not needed p.r.n. dosing as he is not currently in a relationship however has been taking daily dosing 5 mg of tadalafil in discusses how helpful this has been as he feels he is now experiencing morning erections daily. He also reports having followed up with dermatology and has since started skyrizi in discusses feeling this is also been helpful as he has been experiencing less issues with his psoriasis. Physical assessment was offered however deferred by the patient as well as REYES. Labs are as follows: Testosterone: 10/24 564 PSA: 10/24 0.7 We discussed at length potential causes of erectile dysfunction as well as further treatment options and risks and benefits of these treatment options. He discusses having trialed ED medications through [employer] [employer] [facility]. He discusses feeling ED initially started after hydrocelectomy over 10-15 years ago. He reports having had hydrocelectomy here however in review of historical visits I was unable to obtain any of these records. He denies any previous trauma and or recreational drug use. He otherwise denies any bothersome urinary issues. He denies urinary urgency, urinary frequency, incontinence, nocturia, hematuria, dysuria, foul smelling urine, changes to urinary stream, flank pain, fever, and or chills. He is happy with his current voiding parameters. In office urinalysis results reviewed with the patient today. All questions were answered. He otherwise offers no other issues or concerns at this time. [facility] Medical History Overweight with body mass index (BMI) of 29 to 29.9 in adult Psoriasis Cellulitis of great toe, right Traumatic onycholysis History of gynecomastia History of mammogram (~06/20/21) Insomnia Obesity (BMI 30.0-34.9) Low libido Rash of penis Colon cancer screening Allergies Depression Anxiety Hypertension Mild hypercholesterolemia Irritable bowel syndrome Surgical History History of hydrocelectomy Family History Maternal Grandfather Bone cancer Metastatic cancer to brain Paternal Grandmother Leukemia Maternal Aunt Breast cancer, Onset Age: 60 Maternal Uncle Skin cancer Social History Housing: House Alcohol intake: current Alcohol intake frequency: a few times a month Patient Tobacco Use Status: Never used Tobacco Second Hand Smoke Exposure: No service: No Current occupational status: employed Cognitive needs: No Hearing needs: No Vision needs: Yes (rx glasses) Review of Systems Const All systems reviewed & are unremarkable except as noted in HPI and below Physical Exam Const General: cooperative, healthy appearing, comfortable, no acute distress, well developed, alert and awake Orientation/consciousness: patient oriented x3 Limitations: no limitations HEENT Head: Yes normal to inspection, Yes normocephalic and Yes atraumatic Ears: hearing grossly normal bilaterally Eyes General: appearance normal, both eyes and all related structures Neck Neck: Yes normal visual inspection and Yes trachea midline Chest Chest palpation & inspection: normal inspection of the chest Resp Effort & Inspection: normal respiratory effort and able to speak in complete sentences Cardio Rate: regular rate GI Inspection: Yes normal to inspection Other: Deferred General: Yes no CVA tenderness Back/Spine/Pelvis Back: no CVA tenderness Skin General skin exam: no rashes or lesions noted Neuro General: patient oriented x3 Extrem General: Yes normal to inspection Psych Appearance: grossly normal and well kempt Mental Status: mental status grossly normal Speech and movement: Normal speech and movement present and Clear speech present Affect: normal affect Attitude: cooperative Thought process: Normal thought process present Thought content: Normal thought content present Insight: Fair insight present (Psych) Judgement: Fair judgement present (Psych) Assessment & Plan Assessment & Plan (1) Rash of penis: Code(s): R21 - Rash and other nonspecific skin eruption Category: Medical (2) Erectile dysfunction: Code(s): N52.9 - Male erectile dysfunction, unspecified Category: Medical Plan In office urinalysis results reviewed with the patient today; as noted above. Recent PSA results reviewed with the patient today; as noted above Patient currently denies any bothersome urinary issues or concerns. He reports be happy with current voiding parameters. Patient deferred assessment today Will continue to follow-up with dermatology regarding penile rash as he believes this is related to his psoriasis. We discussed at length potential causes of erectile dysfunction as well as further treatment options and risks and benefits of these treatment options. Continue 5 mg Cialis as discussed and prescribed. We discussed at length lifestyle modifications to assist with ED. Follow-up in 6 months; or sooner with any issues, concerns, and or questions.. Medications: Refilled tadalafil (Cialis) [id number] [facility] [id number] Member [id number] 5 mg PO DAILY 90 tabs 3RF 90 days Patient Instructions: The patient had an opportunity to ask questions regarding the treatment plan. All questions were answered. Physical exam, labs, and imaging were discussed and reviewed in detail. As well as risks, benefits, and discussion of treatment choices. No major barriers to understanding were identified. The patient expressed understanding and agreement with the above treatment plan. The patient was made aware they should contact our office by phone for worsening of their current condition, the appearance of new symptoms, or with any questions or concerns. Compliance is encouraged with any medications and follow up testing that is ordered. It is a privilege to be allowed the opportunity to participate in? your urological care.? Again, if you have any questions or concerns If you have any questions or concerns please do not hesitate to contact me. The office is [phone]. This note is constructed using voice recognition software. While every effort has been made to ensure accuracy vinyl welder and fabricator errors may have been included. Yours sincerely, NARENDRA Galeana Coding Level of Care Code Est Pt Level 3 (34355) Diagnoses Rash of penis R21 Erectile dysfunction N52.9
== END 2025-03-12 08:05 | disposition home or self-care (01) ==
LOC: HO.HUSH 07:35
PROVIDERS: PCP Internal Medicine; Visit Provider Nurse Practitioner Family
DX: R21 Rash and other nonspecific skin eruption (principal); N52.9 Male erectile dysfunction, unspecified; Z13.9 Encounter for screening, unspecified
CPT/HCPCS: 99213

== ENCOUNTER → 2025-03-12 07:35 | Outpatient (BNVA) | payer OTHER, SELFPAY | PROVIDERS: PCP Internal Medicine; Visit Provider Nurse Practitioner Family | DX: R21 Rash and other nonspecific skin eruption (principal) | CPT/HCPCS: 81003 ==

== ENCOUNTER 2025-06-04 09:30 | Outpatient (REF) | payer OTHER, SELFPAY ==
[2025-06-07 06:18] LABS: Quantiferon TB Gold Plus 1 NEGATIVE (NEGATIVE); TB Test (QFT) Mitogen -Nil 7.29 IU/mL; TB Test (QFT) Nil 0.01 IU/mL; TB Test (QFT) Plus TB1 -Nil 0.00 IU/mL; TB Test (QFT) Plus TB2 -Nil 0.00 IU/mL
== END 2025-06-04 09:31 | disposition home or self-care (01) ==
LOC: HO.LAB 09:30
PROVIDERS: PCP Internal Medicine; Visit Provider Dermatology
DX: Z11.1 Encounter for screening for respiratory tuberculosis (principal); L40.0 Psoriasis vulgaris
CPT/HCPCS: 36415; 86480